=== PATIENT | male | born 1970 | race Caucasian/White ===

== ENCOUNTER 2018-09-07 10:10 | Emergency (ER) | payer OTHER, BC ==
[~2018-09-07] VITALS: Ht 177.8 cm; Wt 140.9 kg
[2018-09-07] MEDS ORDERED: LISI-672 (10:17)
[2018-09-07] MEDS ORDERED: LEVO75TA4 (10:17)
[2018-09-07] MEDS ORDERED: ATOR1TAB21 (10:17)
[2018-09-07 11:15] VITALS: BP 158/90
--- NOTE | 2018-09-07 11:21 | REP ---
LEFT ELBOW: Four views of the left elbow performed. No fracture or dislocation is seen. There may be a small joint effusion. Occult fracture cannot totally be excluded. Small oval calcification along the lateral humeral epicondyle may be ligamentous or tendinous in etiology. Electronically Signed by Shay Painter MD 09/07/2018 05:39 P
--- NOTE | 2018-09-08 17:03 | ED PDOC ---
Post-Departure Follow-Up [facility] and [facility] faxed formal report of left elbow pain for f u Carmen Montiel MD Sep 08, 2018 17:03
== END 2018-09-07 11:18 | disposition home or self-care (01) ==
LOC: M ED 10:10
DX: M25.422 Effusion, left elbow (principal); X58.XXXA Exposure to other specified factors, initial encounter; Y92.89 Other specified places as the place of occurrence of the external cause; Y99.0 Civilian activity done for income or pay; I10 Essential (primary) hypertension; E78.5 Hyperlipidemia, unspecified; E03.9 Hypothyroidism, unspecified; Z79.899 Other long term (current) drug therapy

== ENCOUNTER → 2018-10-03 | Outpatient (CLI) | payer OTHER, BC ==
[~2018-10-03] MED LIST: ATOR1TAB21; LEVO75TA4; LISI-672
--- NOTE | 2018-10-05 09:26 | REP ---
MRI LEFT ELBOW: TECHNIQUE: Multiple sequences in the axial, coronal and sagittal planes. The lateral collateral ligament is torn. The medial collateral ligament is intact. There is some edema in the common extensor tendon. There is mild increased signal in the common flexor tendon. There is a moderate joint effusion. Ill-defined marrow edema in the coronoid process of the proximal ulna may represent a bone bruise. No other abnormal bone marrow signal is seen. Triceps, biceps, brachialis and brachial radialis demonstrate no abnormal signal and appear intact. There is no ganglion cyst. IMPRESSION: There is a complete tear of the lateral collateral ligament. There is some edema in the adjacent common extensor tendon. There is a moderate joint effusion. There is marrow edema in the coronoid process of the proximal ulna which may represent a bone bruise. Mild tendinitis common flexor tendon. Electronically Signed by Shay Painter MD 10/05/2018 12:44 P
== END ==
LOC: M RAD 10:28
PROVIDERS: ATTEND Orthopaedic Surgery Sports Medicine
DX: S66.119A Strain of flexor muscle, fascia and tendon of unspecified finger at wrist and hand level, initial encounter (principal); S53.492A Other sprain of left elbow, initial encounter; X58.XXXA Exposure to other specified factors, initial encounter; Y92.89 Other specified places as the place of occurrence of the external cause; M25.422 Effusion, left elbow